=== PATIENT | female | born 1995 | race American Indian/Alaskan Native ===

== ENCOUNTER 2016-12-25 17:24 | Outpatient (CLI) | payer MEDICAID ==
[2016-12-25] MEDS ORDERED: LACTATED RINGERS 500 ML IV ONE ×2 (17:54→19:00)
[2016-12-25 17:58] VITALS: BP 115/65
[2016-12-25 19:51] LABS: Bilirubin,Urine NEG (Negative); Blood,Urine NEG (Negative); Ketones,Urine NEG (Negative); Leukocyte Esterase,Urine SM (Negative); Mucus,Urine FEW /HPF; Nitrite,Urine NEG (Negative); Protein,Urine <15 mg/dL mg/dL (Negative); Urobilinogen,Urine < 2.0 mg/dL (<2.0)
== END 2016-12-25 20:30 | disposition home or self-care (01) ==
LOC: TRG 17:24
PROVIDERS: ATTEND Obstetrics & Gynecology
DX: O47.03 False labor before 37 completed weeks of gestation, third trimester (principal); Z3A.34 34 weeks gestation of pregnancy
CPT/HCPCS: 59025; 81001; 96360; J7120

== ENCOUNTER 2017-01-31 22:13 | Outpatient (CLI) | payer MEDICAID ==
[2017-01-31 22:32] VITALS: BP 137/82
[2017-01-31] MEDS ORDERED: VISTARIL PO ONE (22:57)
== END 2017-01-31 23:10 | disposition home or self-care (01) ==
LOC: TRG 22:13
PROVIDERS: ATTEND Obstetrics & Gynecology
DX: O47.1 False labor at or after 37 completed weeks of gestation (principal); Z3A.39 39 weeks gestation of pregnancy
CPT/HCPCS: 59025; Q0177

== ENCOUNTER 2017-02-02 17:56 | Inpatient (IN) | payer MEDICAID ==
[2017-02-02 19:07] LABS: Basophils % (Auto) 0.5 % (0.0-1.8); Eosinophils % (Auto) 2.2 % (0.0-4.3); Hematocrit 31.1 % (30.3-42.9); Hemoglobin 9.9 gm/dl (10.1-14.3); Mean Corpuscular HGB Conc 32 % (30-34); Mean Corpuscular Volume 78 fl (79-97); Platelet Count 235 K/mm3 (140-440); Red Blood Count 3.99 M/mm3 (3.65-5.03); Red Cell Distribution Width 16.7 % (13.2-15.2); White Blood Count 9.9 K/mm3 (4.5-11.0)
[2017-02-02 19:08] LABS: Mean Corpuscular Hemoglobin 25 pg (28-32)
[2017-02-02] MEDS ORDERED: SUBLIMAZE ONE (19:42)
[2017-02-02] MEDS ORDERED: LACTATED RINGERS 1,000 ML ONE (19:55)
[2017-02-02] MEDS ORDERED: MINERAL OIL PO PRN (21:56)
[2017-02-02] MEDS ORDERED: STADOL IV PRN (21:56)
[2017-02-02] MEDS ORDERED: XYLOCAINE 2% INFILTRATI ONE (21:56)
[2017-02-02] MEDS ORDERED: SUBLIMAZE IV PRN (21:56)
[2017-02-02] MEDS ORDERED: NARCAN 0.4 MG/1 ML IV PRN (21:56)
[2017-02-02] MEDS ORDERED: BRETHINE IVP PRN (21:56)
[2017-02-02] MEDS ORDERED: ZOFRAN IV PRN (21:56)
[2017-02-02] MEDS ORDERED: BRETHINE SUB-Q PRN (21:56)
[2017-02-02] MEDS ORDERED: ePHEDrine SULFATE IV PRN (21:56)
[2017-02-02] MEDS ORDERED: PITOCin/NS 20 UNIT/1000ML DRIP 20 UNITS/1,000 ML BAG IV SCH (22:00)
[2017-02-02] MEDS ORDERED: PITOCin/NS 30 UNIT/500ML 30 UNITS/500 ML BAG IV SCH (22:00)
[2017-02-02] MEDS ORDERED: LACTATED RINGERS 1,000 ML IV SCH (22:00)
[2017-02-03] MEDS ORDERED: ePHEDrine SULFATE IV PRN (01:26)
[2017-02-03] MEDS ORDERED: NARCAN 2 MG/2 ML IV PRN (01:26)
--- NOTE | 2017-02-03 01:26 | Anesthesia Consultation ---
Anesthesia Consult and Med Hx Date of service: 02/03/17 - Airway Anesthetic Teeth Evaluation: Good ROM Head & Neck: Adequate Mental/Hyoid Distance: Adequate Mallampati Class: Class II Intubation Access Assessment: Probably Good - Pulmonary Exam CTA: Yes - Cardiac Exam Cardiac Exam: RRR - Pre-Operative Health Status ASA Pre-Surgery Classification: ASA2 Proposed Anesthetic Plan: Epidural - Pulmonary Hx Asthma: Yes (as a child) COPD: No Hx Pneumonia: No - Cardiovascular System Hx Hypertension: No - Central Nervous System Hx Seizures: No Hx Psychiatric Problems: No - Endocrine Hx Renal Disease: No Hx End Stage Renal Disease: No Hx Hypothyroidism: No Hx Hyperthyroidism: No - Hematic Hx Anemia: Yes Hx Sickle Cell Disease: Yes (trait) - Other Systems Hx Alcohol Use: No
[2017-02-03] MEDS ORDERED: fentaNYL-BUPIV 2 MCG/ML-0.125% 200 MCG/100 ML BAG EPIDURAL SCH (02:00)
[2017-02-03] MEDS ORDERED: METHERGINE IM ONE ×2 (04:27→04:30)
[2017-02-03] MEDS ORDERED: TUCKS PAD TP PRN (09:57)
[2017-02-03] MEDS ORDERED: LANSINOH TP PRN (09:57)
[2017-02-03] MEDS ORDERED: SOLARCAINE ALOE TP PRN (09:57)
[2017-02-03] MEDS ORDERED: SODIUM CHLORIDE FLUSH SYRINGE 10 ML IV NR (10:00)
[2017-02-03] MEDS ORDERED: TYLENOL PO PRN (10:00)
[2017-02-03] MEDS: MOTRIN PO SCH ×3 (11:32→23:20)
[2017-02-03] MEDS ORDERED: FLUARIX QUAD 2016-2017(36 MOS+) IM ONE (12:00)
[2017-02-03 17:55] LABS: Hematocrit 24.3 % (30.3-42.9); Hemoglobin 7.8 gm/dl (10.1-14.3)
--- NOTE | 2017-02-03 18:55 | History and Physical Report ---
History of Present Illness Date of examination: 02/02/17 Date of admission: 02/02/17 19:46 Chief complaint: contractions History of present illness: Pt is a 21 year old primigravida JUANJO 02/01/17 at 40w1d who presents with contractions increasing in frequency and intensity for over 24 hours and advanced cervical dilation of 4 cm. She denies leakage of fluid or vaginal bleeding. She has had care at [facility] since 14 wks complicated by trichomonas treated with negative test of cure, chlamydia infection treated with negative test of cure, Sickle Cell Trait, Syncopal episodes with recommendation for Cardiology consult but pt never followed up, anemia prescribed iron supplementation and insufficient care with no visits between 30 and 39 wks. She is GBS negative. 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 (treated with negative test of cure ), trichomonas ( treated with negative test of cure ) Family/Genetic History: diabetes, heart disease, hypertension Social history: no significant social history - Obstetrical History Expected Date of Delivery: 02/01/17 Actual Gestation: 40 Week(s) 2 Day(s) : 1 Medications and Allergies Allergies Allergy/AdvReac Type Severity Reaction Status Date / Time No Known Allergies Allergy Unverified 12/25/16 17:54 Home Medications Medication Instructions Recorded Confirmed Last Taken Type No Known Home Medications [No 02/03/17 02/03/17 Unknown History Reported Home Medications] Active Meds: Active Medications Acetaminophen (Tylenol) 650 mg PO Q4H PRN PRN Reason: Pain MILD(1-3)/Fever >100.5/ESPARZA Butorphanol Tartrate (Stadol) 2 mg IV Q2H PRN PRN Reason: Pain , Severe (7-10) Last Admin: 02/02/17 23:11 Dose: 2 mg Fentanyl (Sublimaze) 100 mcg IV Q2H PRN PRN Reason: Labor Pain Last Admin: 02/02/17 19:42 Dose: 100 mcg Lactated Ringer's (Lactated Ringers) 1,000 mls @ 125 mls/hr IV DIRECT LUPE Oxytocin/Sodium Chloride (Pitocin/Ns 20 Unit/1000ml Drip) 20 units in 1,000 mls @ 125 mls/hr IV DIRECT LUPE Last Admin: 02/03/17 04:23 Dose: 125 mls/hr Oxytocin/Sodium Chloride (Pitocin/Ns 30 Unit/500ml) 30 units in 500 mls @ 4 mls /hr IV TITR LUPE PRN Reason: Protocol Last Admin: 02/02/17 22:00 Dose: 4 mls/hr, 4 mls/hr Fentanyl/Bupivacaine/Sodium Chlor (Fentanyl-Bupiv 2 Mcg/Ml-0.125%) 200 mcg in 100 mls @ 12 mls/hr EPIDURAL TITR LUPE PRN Reason: Protocol Last Admin: 02/03/17 02:00 Dose: 12 mls/hr Ibuprofen (Motrin) 600 mg PO Q6H LUPE Last Admin: 02/03/17 17:56 Dose: 600 mg Lidocaine HCl (Solarcaine Aloe) 1 spray TP PRN PRN PRN Reason: Analgesia Mineral Oil (Mineral Oil) 30 ml PO QHS PRN PRN Reason: Constipation Multi-Ingredient Ointment (Lansinoh) 1 applic TP PRN PRN PRN Reason: Sore Nipples Naloxone HCl (Narcan 0.4 Mg/1 Ml) 0.1 mg IV Q2MIN PRN PRN Reason: Res Rate </= 8 or 02 SAT < 92% Ondansetron HCl (Zofran) 4 mg IV Q8H PRN PRN Reason: Nausea And Vomiting Sodium Chloride (Sodium Chloride Flush Syringe 10 Ml) 10 ml IV PRN NR Stop: 02/09/17 09:59 Witch Xin/Glycerin (Tucks Pad) 1 each TP PRN PRN PRN Reason: Hemorrhoid/cleansing/soothing Review of Systems All systems: negative - Vital Signs Vital signs: Vital Signs Pulse BP 96 H 140/81 02/02/17 18:19 02/02/17 18:19 Temp Pulse Resp BP Pulse Ox 98.9 F 95 H 20 93/48 97 02/03/17 17:06 02/03/17 17:06 02/03/17 17:06 02/03/17 17:06 02/03/17 04:17 - Physical Exam Breasts: Positive: deferred Cardiovascular: Regular rate Lungs: Positive: Clear to auscultation Abdomen: Positive: soft Genitourinary (Female): Positive: normal external genitalia Uterus: Positive: enlarged (gravid) Extremities: Positive: normal - Obstetrical FHR: category 2 Uterine Contraction Monitor Mode: External Cervical Dilatation: 8 Cervical Effacement Percentage: 90 station: -1 Uterine Contraction Pattern: Regular Uterine Tone Measurement Phase: Resting Uterine Contraction Intensity: Strong/Firm Results Result Diagrams: 02/03/17 17:37 Abnormal lab results 02/02/17 02/03/17 Range/Units 18:40 17:37 Hgb 9.9 L 7.8 L (10.1-14.3) gm/dl Hct 24.3 L D (30.3-42.9) % MCV 78 L (79-97) fl MCH 25 L (28-32) pg RDW 16.7 H (13.2-15.2) % [place] % (Auto) 11.7 H (0.0-7.3) % [place] # 1.2 H (0.0-0.8) K/mm3 Seg Neutrophils % 71.0 H (40.0-70.0) % All other labs normal. Assessment and Plan A: IUP at 40w1d Active labor H/o gonorrhea and chlamydia Insufficient care GBS negative P: Admit to labor and delivery. Routine admission orders. Closely monitor maternal and status.
--- NOTE | 2017-02-03 19:05 | Procedure Note ---
OB Delivery Note - Delivery Date of Delivery: 02/03/17 Surgeon: AMY MCMILLAN Estimated blood loss: 500cc - Vaginal Delivery presentation: vertex Delivery position: OA Intrapartum events: PROM->1hr before delivery, uterine atony Delivery induction: none Delivery augmentation: rupture of membranes, pitocin Delivery monitor: external FHT, external uterine Route of delivery: vacuum extraction Indicators for instrumentation: maternal exhaustion Delivery placenta: spontaneous Delivery cord: 3 umbilical vessels Episiotomy: midline Delivery laceration: 2nd degree Delivery repair: vicryl Anesthesia: epidural Delivery comments: Pt progressed to complete/complete/+3 and was unable to continue descent of the baby secondary to maternal exhaustion. head was noted to be in the RADHA position and visible at the introitus between contractions. Kiwi vacuum was applied with 3 pulls, 1 pop off. head then delivered in RADHA position over midline episiotomy. Shoulders and body then delivered easily. was placed on maternal abdomen and bulb suctioned. Cord was clamped and cut. was handed to nurse in attendance. Placenta delivered spontaneously (3VC , intact). Uterus noted to be atonic. Methergine 0.2 mg IM administered and uterus became more firm. Vagina and perineum explored. Second degree laceration with skin incision extending toward anal sphincter repaired in multiple layers of 2-0 Vicryl and 3-0 Vicryl in a standard fashion. EBL 500 mL. - Infant A at 1 minute: 8 at 5 minutes: 9 Gender: Female (3728g (8lb 4 oz))
[2017-02-04] MEDS ORDERED: BOOSTRIX IM ONE (06:00)
[2017-02-04] MEDS: MOTRIN PO SCH (06:05)
--- NOTE | 2017-02-04 08:37 | Progress Note ---
Assessment and Plan O: VSS AF PP H/H: 9.8/27.7 A: Stable PP Day 1 Anemia P: Iron BID routine PP and discharge orders Subjective - Subjective Date of service: 02/04/17 Patient reports: appetite normal, voiding normally, pain well controlled, flatus , ambulating normally Sullivan: doing well, nursing well Objective - Vital Signs Latest vital signs: Vital Signs Temp Pulse Resp BP 02/03/17 23:15 98.4 F 92 H 20 102/56 02/03/17 17:06 98.9 F 95 H 20 93/48 02/03/17 12:49 98.2 F 94 H 20 93/66 Intake and Output 02/03/17 02/04/17 02/04/17 22:59 06:59 14:59 Intake Total 480 480 Output Total 600 Balance -120 480 Intake: Oral 480 480 Output: Urine 600 Void 600 Other: Total, Intake Amount 240 240 Total, Output Amount 600 # Voids Void 1 1 - Exam Breasts: Present: deferred Cardiovascular: Present: Regular rate Lungs: Present: Normal air movement Abdomen: Present: normal appearance, soft. Absent: distention, tenderness Uterus: Present: normal, firm, fundal height below umbilicus (4 below U, ML) Extremities: Present: normal. Absent: edema - Labs Labs: Abnormal lab results 02/03/17 Range/Units 17:37 Hgb 7.8 L (10.1-14.3) gm/dl Hct 24.3 L D (30.3-42.9) %
--- NOTE | 2017-02-04 08:38 | Discharge Summary ---
Providers - Providers Date of Admission: 02/02/17 19:46 Date of discharge: 02/04/17 Attending physician: AMY MCMILLAN Primary care physician: AMY MCMILLAN Hospitalization Reason for admission: active labor, IUP at term Delivery: Episiotomy: none Laceration: 2nd degree Other procedures: none complications: none Discharge diagnosis: IUP at term delivered [place] baby: female Condition at discharge: Good Disposition: DISCHARGED TO HOME OR SELFCARE Plan - Discharge Medications Prescriptions: Acetaminophen/Codeine [Tylenol /Codeine # 3 tab] 1 tab PO Q4HR PRN #45 tablet PRN Reason: Pain Docusate Sodium [Colace] 100 mg PO BID PRN #60 capsule PRN Reason: Constipation Ferrous Sulfate [Feosol 325 MG tab] 325 mg PO BID #60 tablet - Provider Discharge Summary Activity: routine, no sex for 6 weeks, no heavy lifting 4 weeks, no strenuous exercise Diet: routine Instructions: routine Additional instructions: [] Smoking cessation referral if applicable(refer to patient education folder for contact #) [] Refer to [facility] Booklet Call your doctor immediately for: * Fever > 100.5 * Heavy vaginal bleeding ( >1 pad per hour) * Severe persistent headache * Shortness of breath * Reddened, hot, painful area to leg or breast * Drainage or odor from incision. * Keep incision clean and dry at all times and follow doctor's instructions regarding bathing/showering - Follow up plan Follow up: AMY MCMILLAN MD [Primary Care Provider] - (RTO 4 weeks ) AMIRA KAUR CNM [Advanced Practice Nurse] - (RTO 4 weeks )
[2017-02-04 12:52] VITALS: BP 117/82
== END 2017-02-04 13:00 | disposition home or self-care (01) | DRG 774 ==
LOC: TRG 17:56 → LD 19:46 → TRG 19:46 → OB 02-03 06:13
PROVIDERS: ADMIT Obstetrics & Gynecology; ATTEND Obstetrics & Gynecology
PROC: 10D07Z6 Extraction of Products of Conception, Vacuum, Via Natural or Artificial Opening (ICD-10-PCS; principal; 2017-02-03)
PROC: 0KQM0ZZ Repair Perineum Muscle, Open Approach (ICD-10-PCS; 2017-02-03)
PROC: 0W8NXZZ Division of Female Perineum, External Approach (ICD-10-PCS; 2017-02-03)
PROC: 00HU33Z Insertion of Infusion Device into Spinal Canal, Percutaneous Approach (ICD-10-PCS; 2017-02-03)
PROC: 3E0R3CZ (ICD-10-PCS; 2017-02-03)
DX: O75.81 Maternal exhaustion complicating labor and delivery (principal); O72.1 Other immediate postpartum hemorrhage; O99.02 Anemia complicating childbirth; D64.9 Anemia, unspecified; O70.1 Second degree perineal laceration during delivery; Z37.0 Single live birth; O09.33 Supervision of pregnancy with insufficient antenatal care, third trimester; Z3A.40 40 weeks gestation of pregnancy; Z86.19 Personal history of other infectious and parasitic diseases
CPT/HCPCS: 36415; 85014; 85018; 85025; 86850; 86900; 86901; 90471; 90686; 90715; 99211; G0463; J0595; J2210; J2590; J3010; J7120

== ENCOUNTER 2021-09-15 10:27 | Outpatient (CLI) | payer MEDICAID ==
[2021-09-15] MEDS ORDERED: LACTATED RINGERS 500 ML IV ONE (10:40)
[2021-09-15] MEDS ORDERED: ACETAMINOPHEN 500 MG TAB PO ONE (10:41)
[2021-09-15 12:35] VITALS: BP 100/55
== END 2021-09-15 12:41 | disposition home or self-care (01) ==
LOC: TRG 10:27 → APU 10:29 → TRG 12:41
PROVIDERS: ATTEND Student in an Organized Health Care Education/Training Program
DX: O26.893 Other specified pregnancy related conditions, third trimester (principal); R10.2 Pelvic and perineal pain; Z3A.28 28 weeks gestation of pregnancy
CPT/HCPCS: 59025; 96360; J7120

== ENCOUNTER 2021-12-06 08:21 | Inpatient (IN) | payer MEDICAID ==
[2021-12-06] MEDS ORDERED: OXYTOCIN DRIP 30,000 MILLIUNITS/500 ML BAG IV ONE (09:13)
[2021-12-06] MEDS ORDERED: LACTATED RINGERS 1,000 ML ONE (09:29)
[2021-12-06] MEDS ORDERED: fentaNYL 100 MCG/2 ML INJ IV PRN (09:32)
[2021-12-06] MEDS ORDERED: METHYLERGONOVINE MALEATE 0.2 MG/ML VIAL IM PRN (09:32)
[2021-12-06] MEDS ORDERED: ONDANSETRON 4 MG/2 ML INJ IV PRN ×2 (09:32→14:41)
[2021-12-06] MEDS ORDERED: CARBOPROST TROMETHAMINE 250 MCG/1 ML INJ IM PRN (09:32)
[2021-12-06] MEDS ORDERED: ACETAMINOPHEN 325 MG TAB PO PRN ×2 (09:32→14:41)
[2021-12-06] MEDS ORDERED: TERBUTALINE 1 MG/1 ML INJ SUB-Q PRN (09:32)
[2021-12-06] MEDS ORDERED: LOPERAMIDE 2 MG CAP PO PRN (09:32)
[2021-12-06] MEDS ORDERED: BUTORPHANOL 2 MG/1 ML INJ IV PRN (09:32)
[2021-12-06] MEDS ORDERED: LIDOCAINE (2%) 20 MG/1 ML VIAL 20 ML MDV INFILTRATI ONE (09:32)
[2021-12-06] MEDS ORDERED: OXYTOCIN 10 UNIT/1 ML INJ IM PRN (09:32)
[2021-12-06] MEDS ORDERED: miSOPROStol 200 MCG TAB PR PRN (09:32)
[2021-12-06] MEDS ORDERED: MINERAL OIL 30 ML ORAL LIQD PO PRN (09:32)
[2021-12-06] MEDS ORDERED: ePHEDrine SULFATE 50 MG/1 ML INJ IV PRN (09:34)
[2021-12-06] MEDS ORDERED: NALOXONE 2 MG/2 ML INJ IV PRN (09:34)
--- NOTE | 2021-12-06 09:39 | History and Physical Report ---
History of Present Illness Date of examination: 12/06/21 Date of admission: Chief complaint: painful labor contractions @ 40wks History of present illness: EDC Confirmation: 12/06/2021 Past History : 2 Term Births: 1 Premature Births: 0 Living Children: 1 Para: 1 Mult. Births: 0 Prev : 0 Aborta: 0 Elect. Ab: 0 Spont. Ab: 0 Ectopics: 0 # 1 Delivery date: 2016 Weeks Gestation: 40 labor: no Delivery type: Hours of labor: 14 hours Anesthesia type: epidural Delivery location: [facility] Infant Sex: Female weight: 8-0 Comments: Vaccum delivery with epsiotomy and PPH. Past Medical History: Reviewed and updated today: PE - 2017, approx 5 months after delivery (discovered today when reviewing hospital chart, pt did not disclose to office during care.) Past Surgical History: Reviewed and updated today: negative Family History Summary: Father - Has Family History of Hypertension - Entered On: 04/22/2021 PGF - Has Family History of Diabetes - Entered On: 04/22/2021 General Comments - FH: Unknown cancer Social History: Patient is single Smoking History: Patient has never smoked. 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 % Sun Exposure: occasionally No Dietary Counseling Reason: pn yes Alcohol Use: no Drug Use: no Past Medical History Anesthesia Complications: negative Anemia: negative Autoimmune Disorder: negative Bleeding Disorder: negative (hx + PE 2016) Blood Transfusions: negative Breast Disease: negative Diabetes: negative Heart Disease: negative Hypertension: negative Hepatitis/Liver Disease: negative Kidney Disease/UTI: negative Neurologic/Epilepsy/Migraines: negative Phlebitis/Varicosities: negative Psychiatric: negative Pulmonary Disease/Asthma: negative Thyroid Disease: negative Hospitalizations: negative Surgery (Non-director of manufacturing): negative Abnormal PAP: negative WEST Exposure: negative Infertility: negative Uterine Anomaly: negative Uterine Surgery (not C/S): negative Other Gynecologic Problems: negative Family Hx: Unknown cancer Social Hx: Patient is single Smoking History: Patient has never smoked. Infection History Hx of STD: Yes HIV Risk Eval: no Hepatitis B Risk Eval: low risk Personal hx. of genital herpes: no Partner hx. of genital herpes: no Rash, Viral, or Febrile illness since last LMP? no Varicella/Chicken Pox Status: No TB Risk: no Genetic History Congenital Heart Defect: Mom: no Dad: no Katie Disease: Mom: no Dad: no Thalassemia Mom: no Dad: no Neural Tube Defect Mom: no Dad: no Down's Syndrome Mom: no Dad: no Abdirahman-Sachs Mom: no Dad: no Sickle Cell Disease/Trait Mom: yes Dad: no Comments: Patient + Trait Hemophilia Mom: no Dad: no Muscular Dystrophy Mom: no Dad: no Cystic Fibrosis Mom: no Dad: no [place] Chorea Mom: no Dad: no Mental Retardation Mom: no Dad: no Fragile X Mom: no Dad: no Other Genetic/Chromosomal Disorder Mom: no Dad: no Child w/other defect Mom: no Dad: no Enviromental Exposures Xray Exposure: no Medication, drug, or alcohol use since LMP: no Chemical/Other Exposure: no Exposure to Cat Liter: no Hx of Parvovirus (Fifth Disease): no Occupational Exposure to Children: none Active Medications (reviewed today): Reglan 10 mg tablet (metoclopramide hcl) Take 1 tablet by mouth every six hours as needed Colace 100 mg capsule (docusate sodium) Take 1 capsule by mouth twice a day as directed Current Allergies (reviewed today): No known allergies Past History Past Medical History: other (see HPI) Past Surgical History: other (see HPI) 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 denies: smoking, alcohol abuse, prescription drug abuse, IV drug use - Obstetrical History Expected Date of Delivery: 12/06/21 Actual Gestation: 40 Week(s) 0 Day(s) : 2 Para: 1 Hx # Term Pregnancies: 1 Number of Pregnancies: 0 Spontaneous Abortions: 0 Induced : 0 Number of Living Children: 1 Medications and Allergies Allergies Allergy/AdvReac Type Severity Reaction Status Date / Time No Known Allergies Allergy Verified 07/06/17 19:15 Home Medications Medication Instructions Recorded Confirmed Last Taken Type Apixaban [Eliquis] 5 mg PO BID 90 Days tablet 07/09/17 Unknown Rx Apixaban [Eliquis] 10 mg PO BID 7 Days tablet 07/09/17 Unknown Rx traMADoL [Ultram] 50 mg PO Q6HR PRN #14 tablet 07/09/17 Unknown Rx Active Meds: Active Medications Acetaminophen (Acetaminophen 325 Mg Tab) 650 mg PO Q4H PRN PRN Reason: Pain, Mild (1-3) Butorphanol Tartrate (Butorphanol 2 Mg/1 Ml Inj) 1 mg IV Q2H PRN PRN Reason: Pain, Moderate(4-6) LABOR PAIN Carboprost Tromethamine (Carboprost Tromethamine 250 Mcg/1 Ml Inj) 250 mcg IM ONCE PRN PRN Reason: Uterine Bleeding Ephedrine Sulfate (Ephedrine Sulfate 50 Mg/1 Ml Inj) 10 mg IV Q2M PRN PRN Reason: Hypotension Ephedrine Sulfate (Ephedrine Sulfate 50 Mg/1 Ml Inj) 10 mg IV Q2M PRN PRN Reason: Hypotension Fentanyl (Fentanyl 100 Mcg/2 Ml Inj) 100 mcg IV Q2H PRN PRN Reason: Pain,Severe (7-10) LABOR PAIN Fentanyl/Bupivacaine/Sodium Chlor (Fentanyl-Bupiv 2 Mcg/Ml-0.125%) 200 mcg in 100 mls @ 12 mls/hr EPIDURAL TITR LUPE; Protocol Oxytocin/Sodium Chloride (Pitocin/Ns 30 Unit/500ml) 30 units in 500 mls @ 2 mls/hr IV TITR LUPE; Protocol Lactated Ringer's (Lactated Ringers) 1,000 mls @ 125 mls/hr IV DIRECT LUPE Oxytocin/Sodium Chloride (Pitocin/Ns 30 Unit/500ml) 30 units in 500 mls @ 40 mls/hr IV TITR LUPE; Protocol Lidocaine (Lidocaine (2%) 20 Mg/1 Ml Vial 20 Ml Mdv) 20 ml INFILTRATI ONCE ONE Stop: 12/06/21 09:33 Loperamide HCl (Loperamide 2 Mg Cap) 2 mg PO ONCE PRN PRN Reason: give with Hemabate Methylergonovine Maleate (Methylergonovine Maleate 0.2 Mg/Ml Vial) 0.2 mg IM ONCE PRN PRN Reason: Uterine Bleeding Mineral Oil (Mineral Oil 30 Ml Oral Liqd) 30 ml PO QHS PRN PRN Reason: Constipation Misoprostol (Misoprostol 200 Mcg Tab) 800 mcg SC ONCE PRN PRN Reason: Uterine Bleeding Naloxone HCl (Naloxone 2 Mg/2 Ml Inj) 0.2 mg IV Q5M PRN PRN Reason: Respiratory sedation Ondansetron HCl (Ondansetron 4 Mg/2 Ml Inj) 4 mg IV Q8H PRN PRN Reason: Nausea And Vomiting Oxytocin (Oxytocin 10 Unit/1 Ml Inj) 10 unit IM ONCE PRN PRN Reason: Uterine Bleeding Terbutaline Sulfate (Terbutaline 1 Mg/1 Ml Inj) 0.25 mg SUB-Q ONCE PRN PRN Reason: Hyperstimulation/Hypertonicity Review of Systems All systems: negative - Vital Signs Vital signs: Vital Signs Temp Pulse Resp BP Pulse Ox 97.9 F 88 16 113/73 99 12/06/21 08:36 12/06/21 08:36 12/06/21 08:36 12/06/21 08:36 12/06/21 08:36 Temp Pulse Resp BP Pulse Ox 97.9 F 89 16 113/73 100 12/06/21 08:36 12/06/21 09:33 12/06/21 08:36 12/06/21 08:39 12/06/21 09:33 - Physical Exam Breasts: Positive: normal Cardiovascular: Regular rate Lungs: Positive: Normal air movement Abdomen: Positive: normal appearance, soft Genitourinary (Female): Positive: normal external genitalia, normal perenium Vulva: both: normal Vagina: Positive: normal moisture Uterus: Positive: normal size, normal contour Anus/Rectum: Positive: normal perianal skin Extremities: Positive: normal Deep Tendon Reflex Grade: Normal +2 - Obstetrical FHR: category 1 Uterine Contraction Monitor Mode: External Cervical Dilatation: 6.5 Cervical Effacement Percentage: 80 station: -1 Uterine Contraction Frequency (min): 3-4 Uterine Contraction Duration: 60 Uterine Contraction Pattern: Regular Uterine Tone Measurement Phase: Contraction Uterine Contraction Intensity: Moderate Results All other labs normal. Assessment and Plan 26y/o @ 40w0d presented in active labor. GBS Neg. Upon exploring her [facility] record, patient dx with PE approx 5 months post delivery in 2017. She reports not taking any anticoagulants in several years. Anesthesia aware, will consult Dr. Rai. Admission orders in EMR. Pt states she does not feel this baby is as large as her last. Admission orders in EMR, Epidural PRN, Anticipate . - Patient Problems (1) 40 weeks gestation of Current Visit: Yes Status: Acute (2) Hx pulmonary embolism Current Visit: Yes Status: Acute Plan to address problem: no SOB or chest pain o2 SAT 99-100% on RA Will consult Dr. Rai for further planning. (3) History of hemorrhage Current Visit: Yes Status: Acute Plan to address problem: nursing staff prepared for PPH; Medications ordered and will be immediately available Patient also has second IV placed (INT only) to be available for emergency.
[2021-12-06] MEDS ORDERED: LACTATED RINGERS 1,000 ML IV SCH (09:45)
--- NOTE | 2021-12-06 09:55 | Anesthesia Consultation ---
Anesthesia Consult and Med Hx Date of service: 12/06/21 - Airway Anesthetic Teeth Evaluation: Good ROM Head & Neck: Adequate Mental/Hyoid Distance: Adequate Mallampati Class: Class II Intubation Access Assessment: Probably Good - Pulmonary Exam CTA: Yes - Cardiac Exam Cardiac Exam: RRR - Pre-Operative Health Status ASA Pre-Surgery Classification: ASA2 Proposed Anesthetic Plan: Epidural - Pulmonary Hx Asthma: No SOB: No COPD: No Hx Pneumonia: No - Cardiovascular System Hx Hypertension: No - Central Nervous System Hx Seizures: No Hx Psychiatric Problems: No - Endocrine Hx Renal Disease: No Hx End Stage Renal Disease: No Hx Hypothyroidism: No Hx Hyperthyroidism: No - Hematic Hx Anemia: No Hx Sickle Cell Disease: No - Other Systems Hx Alcohol Use: No Hx Cancer: No
[2021-12-06] MEDS ORDERED: fentaNYL-BUPIV 2 MCG/ML-0.125% 200 MCG/100 ML BAG EPIDURAL SCH (10:00)
[2021-12-06] MEDS ORDERED: OXYTOCIN DRIP 30 UNITS/500 ML BAG IV SCH ×2 (10:00)
--- NOTE | 2021-12-06 10:26 | Progress Note ---
Labor Epidural - Labor Epidural Start Time: 10:15 Stop Time: 10:18 Performed by:: RAGHAV CHILDERS Procedure: Patient is requesting epidural for labor pain. H&P, and labs reviewed. Procedure explained, questions answered, consent obtained. Patient in sitting position with blood pressure cuff and pulse ox on and working. Timeout performed immediately before start of procedure. Sterile Chloraprep prep/drape. 3 mL 1% lidocaine skin wheal at L[3]-L[4]. 17-gauge tuohy epidural needle advanced to [id number] with saline at 8 cm. 25-gauge spinal needle advanced until clear, free-flowing CSF. Intrathecal dexmedetomidine [5] mcg administered and needle removed. Epidural catheter advanced to [12] cm, negative aspiration for blood and csf, negative test dose 3 ml 1.5% lidocaine with epinephrine. Sterile sponge and tegaderm applied, followed by tape reinforcement. Patient tolerated procedure well.
[2021-12-06 10:29] LABS: Hematocrit 36.6 % (30.3-42.9); Hemoglobin 12.3 gm/dl (10.1-14.3); Mean Corpuscular HGB Conc 34 % (30-34); Mean Corpuscular Volume 87 fl (79-97); Platelet Count 164 K/mm3 (140-440); Red Blood Count 4.19 M/mm3 (3.65-5.03)
[2021-12-06] MEDS: ePHEDrine SULFATE 50 MG/1 ML INJ IV PRN ×2 (12:39→12:41)
--- NOTE | 2021-12-06 14:19 | Procedure Note ---
OB Delivery Note - Delivery Date of Delivery: 12/06/21 ( baby girl) [employer] Team Member: JULIUS PEREA Estimated blood loss: 100cc - Vaginal Delivery presentation: vertex Delivery position: OA (RADHA) Intrapartum events: none Delivery induction: none Delivery augmentation: rupture of membranes, pitocin Delivery monitor: external FHT, external uterine Route of delivery: Delivery placenta: spontaneous Delivery cord: 3 umbilical vessels Episiotomy: none Anesthesia: epidural Delivery comments: baby girl born over intact perineum, RADHA. placed skin to skin on mother's abdomen. 3 vessel cord clamped and cut after cessation of pulsation. Placenta delivered intact and complete. no lacerations to repair. lochia scant, fundus firm. EBL approx 100ml. Apars /, wt 7#9oz. all counts correct. Mother and infant remain LDR stable. Pt aware she will start lovenox d/t hx PE. - Infant A at 1 minute: 9 at 5 minutes: 9 Infant Gender: Female (7#9oz)
[2021-12-06] MEDS ORDERED: BENZOCAINE/MENTHOL 20/0.5% TOP SPRAY 56 GM TP PRN (14:41)
[2021-12-06] MEDS ORDERED: LANOLIN/ZINC/DIMETHICONE (LANSINOH) 7 GM TP PRN ×2 (14:41)
[2021-12-06] MEDS ORDERED: WITCH HAZEL/ GLYCERIN PAD TP PRN (14:41)
[2021-12-06] MEDS ORDERED: diphenhydrAMINE 25 MG CAP PO PRN (14:41)
[2021-12-06] MEDS ORDERED: PROMETHAZINE 25 MG TAB PO PRN (14:41)
[2021-12-06] MEDS ORDERED: MAGNESIUM HYDROXIDE (MOM) ORAL LIQD UDC PO PRN (14:41)
[2021-12-06] MEDS ORDERED: ENOXAPARIN 40 MG/0.4 ML INJ SUB-Q SCH (22:00)
[2021-12-06] MEDS: FERROUS SULFATE 325 MG TAB PO SCH (22:23)
[2021-12-06] MEDS: IBUPROFEN 800 MG TAB PO SCH (22:23)
[2021-12-06] MEDS: DOCUSATE SODIUM 100 MG CAP PO SCH (22:23)
[2021-12-07 05:17] LABS: Hematocrit 33.7 % (30.3-42.9); Hemoglobin 11.6 gm/dl (10.1-14.3)
[2021-12-07] MEDS ORDERED: TETANUS,DIPH,PERTUSS(ACELL) VACCINE 0.5 ML SYRINGE IM ONE (06:00)
[2021-12-07] MEDS: IBUPROFEN 800 MG TAB PO SCH (06:23)
--- NOTE | 2021-12-07 08:24 | Discharge Summary ---
Providers - Providers Date of Admission: 12/06/21 08:22 Date of discharge: 12/07/21 (desires d/c home today) Attending physician: LUIS ENRIQUE YING 12/06/21 14:41 Consult to Scale Clerk [CONS] Routine Reason For Exam: assistance with , SNS Primary care physician: LUIS ENRIQUE YING Hospitalization Reason for admission: Labor Condition: Good Pertinent studies: H&H 11.6/33.7 Procedures: Hospital course: uncomplicated Disposition: 01 HOME / SELF CARE / HOMELESS Final Discharge Diagnosis (Prints w/discharge instructions): Time spent for discharge: 25 - Discharge Diagnoses (1) Hx pulmonary embolism Status: Acute (2) (normal spontaneous vaginal delivery) Status: Acute Core Measure Documentation - Palliative Care Palliative Care/ Comfort Measures: Not Applicable - Core Measures Any of the following diagnoses?: history only Exam - Physical Exam Narrative exam: fundus firm, lochia scant, breast and bottle feeding. - Constitutional Vitals: Temp Pulse Resp BP Pulse Ox 97.8 F 66 18 113/50 100 12/07/21 07:25 12/07/21 07:25 12/07/21 07:23 12/07/21 07:25 12/06/21 23:22 General appearance: Present: no acute distress, well-nourished - EENT Eyes: Present: PERRL ENT: hearing intact, clear oral mucosa - Neck Neck: Present: supple, normal ROM - Respiratory Respiratory effort: normal Respiratory: bilateral: CTA - Cardiovascular Rhythm: regular Heart Sounds: Absent: rub, click - Extremities Extremities: No edema Peripheral Pulses: within normal limits - Abdominal General gastrointestinal: Present: soft, non-tender, non-distended, normal bowel sounds Female genitourinary: Present: normal - Integumentary Integumentary: Present: clear, warm, dry - Musculoskeletal Musculoskeletal: gait normal, strength equal bilaterally - Psychiatric Psychiatric: appropriate mood/affect, intact judgment & insight - Neurologic Neurologic: CNII-XII intact, moves all extremities Plan Activity: no restrictions Diet: regular Follow up with: LUIS ENRIQUE YING MD [Primary Care Provider] - 7 Days (Congratulations! Please call [phone] to schedule your visit in 4-6 weeks. Call for any questions or concerns. Please continue to take Lovenox injections daily until told otherwise.) Prescriptions: Enoxaparin 40 mg SQ QDAY #30 syringe
[2021-12-07] MEDS ORDERED: PRENATAL VIT27-FE FUMARATE-FOLIC ACID VIT TAB PO SCH (10:00)
[2021-12-07] MEDS: DOCUSATE SODIUM 100 MG CAP PO SCH (10:33)
[2021-12-07] MEDS: FERROUS SULFATE 325 MG TAB PO SCH (10:33)
--- NOTE | 2021-12-07 12:40 | Post Anesthesia Evaluation ---
- Post Anesthesia Evaluation Patient Participated: Yes Airway Patent: Yes Stable Respiratory Function: Yes Nausea/Vomiting: No Temp > 96.8F: Yes Pain Manageable: Yes Adequeate Hydration: Yes Anesthesia Complications: No Block Receding Appropriately: Yes
[2021-12-07 16:32] VITALS: BP 114/68
== END 2021-12-07 18:40 | disposition home or self-care (01) | DRG 775 ==
LOC: TRG 08:21 → LD 08:22 → APU 08:22 → LD 09:09 → TRG 10:15 → OB 16:27
PROVIDERS: ADMIT Obstetrics & Gynecology; ATTEND Obstetrics & Gynecology
PROC: 10E0XZZ Delivery of Products of Conception, External Approach (ICD-10-PCS; principal; 2021-12-06)
PROC: 3E0234Z Introduction of Serum, Toxoid and Vaccine into Muscle, Percutaneous Approach (ICD-10-PCS; 2021-12-06)
PROC: 3E0R3BZ Introduction of Anesthetic Agent into Spinal Canal, Percutaneous Approach (ICD-10-PCS; 2021-12-06)
PROC: 00HU33Z Insertion of Infusion Device into Spinal Canal, Percutaneous Approach (ICD-10-PCS; 2021-12-06)
DX: O80 Encounter for full-term uncomplicated delivery (principal); Z37.0 Single live birth; Z20.822 Contact with and (suspected) exposure to COVID-19; Z23 Encounter for immunization; Z3A.40 40 weeks gestation of pregnancy
CPT/HCPCS: 36415; 85014; 85018; 85027; 86592; 86850; 86900; 86901; G0378; J3490; J1650; J2590; J7120; Q0177; U0003